=== PATIENT | male | born 1960 | race Caucasian/White ===

== ENCOUNTER 2016-10-24 17:47 | Inpatient (IN) | payer OTHER, MEDICAID ==
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
--- NOTE | 2016-10-24 18:22 | DX ---
Shoulder Minimum 2 Views Right History: Trauma. Pain. Comparison exam: None available. Findings: Obliquely oriented angulated displaced fracture involves the proximal right humeral diaphys is. The humeral head appears normally located. No additional fracture identified. Impression: Obliquely oriented displaced and angulated proximal right humeral diaphyseal fracture.
[2016-10-24 19:01] LABS: % IMMATURE GRANULYOCYTES 0.3 % (0.0-1.1); ABSOLUTE IMMATURE GRANULOCYTES 0.02 10^3/uL (0.00-0.10); ADD DIFF? NO; ADD MORPH? NO; ADD SCAN? NO; ATYPICAL LYMPHOCYTE FLAG 10 (0-99); FRAGMENT RBC FLAG 0 (0-99); HEMATOCRIT 39.4 % (40.0-51.0); HEMOGLOBIN 13.5 g/dL (13.7-17.5); LEFT SHIFT FLG 0 (0-99); LIPEMIA HEMOLYSIS FLAG 90 (0-99); MEAN CELL HEMOGLOBIN 31.8 pg (27.9-34.1); MEAN CELL HEMOGLOBIN CONCENTR. 34.3 g/dL (32.4-36.7); MEAN CELL VOLUME 92.7 fL (81.5-99.8); MEAN PLATELET VOLUME 9.6 fL (8.7-11.7); PLATELET CLUMPS FLAG 10 (0-99); PLATELET COUNT 209 10^3/uL (150-400); RED BLOOD CELL COUNT 4.25 10^6/uL (4.40-6.38); RED CELL DISTRIBUTION WIDTH 12.9 % (11.5-15.2)
[2016-10-24 19:29] LABS: ANION GAP 8 mEq/L (8-16); CALCIUM 8.5 mg/dL (8.5-10.4); CARBON DIOXIDE 26 mEq/l (22-31); CHLORIDE 103 mEq/L (97-110); CREATININE 0.7 mg/dL (0.7-1.3); GLOMERULAR FILTRATION RATE > 60; GLUCOSE 77 mg/dL (70-100); POTASSIUM 4.3 mEq/L (3.5-5.2); SODIUM 137 mEq/L (134-144)
[2016-10-24] MEDS ORDERED: ONDANSETRON 4 MG/2 ML VIAL IVP PRN (19:49)
[2016-10-24] MEDS ORDERED: ONDANSETRON DISINTEGRATING 4 MG TAB PO PRN (19:49)
[2016-10-24] MEDS ORDERED: LORazepam 1 MG TAB PO PRN (19:52)
[2016-10-24] MEDS ORDERED: LORazepam 2 MG/ML INJ IVP PRN (19:52)
[2016-10-24] MEDS ORDERED: THIAMINE HCL 500 MG in NS 100 ML IV ONE (19:52)
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
[2016-10-24] MEDS: oxyCODONE IR 5 MG TAB PO PRN (21:10)
[2016-10-24] MEDS: carBAMazepine ER 400 MG TAB PO SCH (21:10)
[2016-10-24] MEDS ORDERED: NS 1,000 ML IV SCH (22:15)
[2016-10-24] MEDS: PHENobarbital 30 MG TAB PO SCH (23:10)
[2016-10-25] MEDS: oxyCODONE IR 5 MG TAB PO PRN ×3 (04:37→16:22)
[2016-10-25 05:50] LABS: % IMMATURE GRANULYOCYTES 0.3 % (0.0-1.1); ABSOLUTE IMMATURE GRANULOCYTES 0.02 10^3/uL (0.00-0.10); ADD DIFF? NO; ADD MORPH? NO; ADD SCAN? NO; ATYPICAL LYMPHOCYTE FLAG 10 (0-99); FRAGMENT RBC FLAG 0 (0-99); HEMATOCRIT 37.8 % (40.0-51.0); HEMOGLOBIN 12.7 g/dL (13.7-17.5); LEFT SHIFT FLG 0 (0-99); LIPEMIA HEMOLYSIS FLAG 80 (0-99); MEAN CELL HEMOGLOBIN 31.1 pg (27.9-34.1); MEAN CELL HEMOGLOBIN CONCENTR. 33.6 g/dL (32.4-36.7); MEAN CELL VOLUME 92.6 fL (81.5-99.8); MEAN PLATELET VOLUME 9.7 fL (8.7-11.7); PLATELET CLUMPS FLAG 10 (0-99); PLATELET COUNT 178 10^3/uL (150-400); RED BLOOD CELL COUNT 4.08 10^6/uL (4.40-6.38)
[2016-10-25] MEDS: carBAMazepine ER 400 MG TAB PO SCH ×4 (05:53→21:16)
[2016-10-25 06:29] LABS: ANION GAP 6 mEq/L (8-16); CALCIUM 8.3 mg/dL (8.5-10.4); CARBON DIOXIDE 29 mEq/l (22-31); CHLORIDE 108 mEq/L (97-110); CREATININE 0.7 mg/dL (0.7-1.3); GLOMERULAR FILTRATION RATE > 60; GLUCOSE 80 mg/dL (70-100); MAGNESIUM 1.7 mg/dL (1.6-2.3); SODIUM 143 mEq/L (134-144)
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
[2016-10-25] MEDS: THIAMINE HCL 500 MG in NS 100 ML IV SCH (08:51)
[2016-10-25] MEDS: CITALOPRAM 20 MG TAB PO SCH (08:52)
[2016-10-25] MEDS: ETODOLAC 200 MG PO SCH (08:54)
[2016-10-25] MEDS ORDERED: CITALOPRAM 20 MG TAB PO SCH (09:00)
[2016-10-25] MEDS: PHENobarbital 30 MG TAB PO SCH ×3 (09:07→21:16)
--- NOTE | 2016-10-25 09:28 | WOCRNPDOC ---
WOCRN Advanced Assessment Note - Skin Integrity Problem, Advanced Assess Left Ischial Tuberosity Wound Bed Constitution: Healed Pressure Injury Present on Admit: Yes Skin Integrity Problem Comment: Healed full thickness wound. Likely was a pressure injury due to location, but has a strange linear presentation, like a healed laceration. Pt reports that "its hemorrhoids". Wound care does not need to follow. Please reconsult prn.
[2016-10-25] MEDS: ACETAMINOPHEN 325 MG TAB PO PRN ×2 (09:56→16:22)
--- NOTE | 2016-10-25 15:28 | HOSPPROG ---
Hospitalist Progress Note Assessment/Plan: 55-year-old male admitted to the emergency room secondary to fall from his wheelchair. This is my 1st encounter with the patient, chart reviewed. Patient discussed with case management. # humeral fracture Appreciate consult from Dr. Nettles No surgical intervention Patient requires senior care facilities he is wheelchair-bound and can no longer transfer given his humeral fracture # history of seizure disorder No seizure activity at this time Continue medications # wheelchair-bound Will need therapy at senior care facility # history of alcohol abuse No signs of withdrawal at this time # disposition Reviewed with case management Will require senior care facility rehabilitation Continue PT OT eval Subjective: Up in the chair wants to get back to bed. No pain currently. No specific complaints. Objective: Vital Signs Temp Pulse Resp BP Pulse Ox 36.6 C 64 16 97/62 L 90 L 10/25/16 07:55 10/25/16 12:00 10/25/16 12:00 10/25/16 12:00 10/25/16 12:00 Laboratory Results 10/25/16 05:20 10/25/16 05:20 10/24/16 10/25/16 10/26/16 05:59 05:59 05:59 Intake Total 900 Output Total 675 600 Balance 225 -600 - Physical Exam Constitutional: appears nourished, uncomfortable, unkempt Eyes: PERRL, anicteric sclera, EOMI Ears, Nose, Mouth, Throat: moist mucous membranes, hearing normal, ears appear normal Cardiovascular: regular rate and rhythym, No JVD, No edema Respiratory: no respiratory distress, no rales or rhonchi, reduced air movement Gastrointestinal: No tenderness, No ascites, No guarding Skin: warm, normal color, No erythema Musculoskeletal: pain with ROM, muscular tenderness, abnormal gait, generalized weakness Psychiatric: not anxious, not encephalopathic, poor insight, poor judgement ICD10 Worksheet Patient Problems: Problems Problem Status Diagnosed Closed right humeral fracture Acute
[2016-10-26] MEDS: carBAMazepine ER 400 MG TAB PO SCH ×4 (05:13→20:59)
[2016-10-26 05:34] LABS: MAGNESIUM 1.8 mg/dL (1.6-2.3)
[2016-10-26] MEDS ORDERED: MAGNESIUM HYDROXIDE 30 ML UDCUP PO PRN (08:28)
[2016-10-26] MEDS ORDERED: BISACODYL 10 MG SUPP PR PRN (08:28)
[2016-10-26] MEDS ORDERED: LACTULOSE 20 GM/30 ML UDCUP PO PRN (08:28)
[2016-10-26] MEDS: oxyCODONE IR 5 MG TAB PO PRN ×3 (09:31→22:32)
[2016-10-26] MEDS: ACETAMINOPHEN 325 MG TAB PO PRN (09:32)
[2016-10-26] MEDS: CITALOPRAM 20 MG TAB PO SCH (09:32)
[2016-10-26] MEDS: PHENobarbital 30 MG TAB PO SCH ×3 (09:32→21:00)
[2016-10-26] MEDS: SENNOSIDES/DOCUSATE SODIUM TAB PO SCH ×2 (09:34→21:00)
[2016-10-26] MEDS: POLYETHYLENE GLYCOL 3350 17 GM PKT PO SCH (09:34)
[2016-10-26] MEDS: THIAMINE HCL 500 MG in NS 100 ML IV SCH (09:45)
[2016-10-26] MEDS: ETODOLAC 200 MG PO SCH (09:45)
--- NOTE | 2016-10-26 14:08 | HOSPPROG ---
Hospitalist Progress Note Assessment/Plan: 55-year-old male admitted to the emergency room secondary to fall from his wheelchair. This is my 1st encounter with the patient, chart reviewed. Patient discussed with case management. # humeral fracture Appreciate consult from Dr. Nettles No surgical intervention Patient requires [facility] facilities he is wheelchair-bound and can no longer transfer given his humeral fracture # history of seizure disorder No seizure activity at this time Continue medications # wheelchair-bound Will need therapy at [facility] facility # history of alcohol abuse No signs of withdrawal at this time ordered beer with dinner thiamine, alcohol withdrawal protocol # disposition pending/ needs SNF Subjective: Dale has no complaints/ says his right shoulder area is tender. Objective: Vital Signs Temp Pulse Resp BP Pulse Ox 36.9 C 76 18 110/71 91 L 10/26/16 07:45 10/26/16 07:45 10/26/16 07:45 10/26/16 07:45 10/26/16 07:45 Laboratory Results 10/25/16 05:20 10/25/16 05:20 10/25/16 10/26/16 10/27/16 05:59 05:59 05:59 Intake Total 900 650 Output Total 675 1000 100 Balance 225 -350 -100 - Physical Exam Constitutional: chronically ill appearing, uncomfortable, unkempt Eyes: PERRL, scleral injection Ears, Nose, Mouth, Throat: hearing normal Cardiovascular: regular rate and rhythym Respiratory: no respiratory distress Gastrointestinal: normoactive bowel sounds Skin: warm Musculoskeletal: No full muscle strength Neurologic: AAOx3 Psychiatric: interacting appropriately, flat affect ICD10 Worksheet Patient Problems: Problems Problem Status Diagnosed Closed right humeral fracture Acute
[2016-10-26] MEDS ORDERED: BEER 1 EACH EA PO SCH (18:00)
[2016-10-26 23:38] VITALS: RESP 14
[2016-10-27] MEDS: oxyCODONE IR 5 MG TAB PO PRN ×3 (01:21→13:03)
[2016-10-27] MEDS: carBAMazepine ER 400 MG TAB PO SCH ×2 (05:27→13:04)
[2016-10-27 06:01] LABS: MAGNESIUM 1.9 mg/dL (1.6-2.3)
[2016-10-27 07:50] VITALS: BP 93/63; PULSE 72; TEMP 99; O2SAT 94
[2016-10-27] MEDS ORDERED: THIAMINE HCL 100 MG TAB PO SCH (09:00)
[2016-10-27] MEDS: ACETAMINOPHEN 325 MG TAB PO PRN ×2 (09:34→13:03)
[2016-10-27] MEDS: PHENobarbital 30 MG TAB PO SCH (09:35)
[2016-10-27] MEDS: CITALOPRAM 20 MG TAB PO SCH (09:35)
[2016-10-27] MEDS: ETODOLAC 200 MG PO SCH (09:39)
[2016-10-27] MEDS: POLYETHYLENE GLYCOL 3350 17 GM PKT PO SCH (09:40)
[2016-10-27] MEDS: SENNOSIDES/DOCUSATE SODIUM TAB PO SCH (09:40)
--- NOTE | 2016-10-27 10:47 | HOSPPROG ---
Hospitalist Progress Note Assessment/Plan: 55-year-old male admitted to the emergency room secondary to fall from his wheelchair. # r humeral fracture Appreciate consult from Dr. Nettles No surgical intervention f/u in two weeks # history of seizure disorder No seizure activity at this time Continue medications # wheelchair-bound Will need therapy at prison facility # history of alcohol abuse No signs of withdrawal at this time ordered beer with dinner thiamine, alcohol withdrawal protocol # disposition [employer] today Subjective: Dale is not c/o pain. says he feels "so-so" Objective: Vital Signs Temp Pulse Resp BP Pulse Ox 37.2 C 72 14 93/63 L 94 10/27/16 07:49 10/27/16 07:49 10/27/16 07:49 10/27/16 07:49 10/27/16 07:49 Laboratory Results 10/25/16 05:20 10/25/16 05:20 10/26/16 10/27/16 10/28/16 05:59 05:59 05:59 Intake Total 650 750 Output Total 1000 600 150 Balance -350 150 -150 - Physical Exam Constitutional: no apparent distress, chronically ill appearing, unkempt Eyes: PERRL Ears, Nose, Mouth, Throat: hearing normal Cardiovascular: regular rate and rhythym Respiratory: no respiratory distress Gastrointestinal: normoactive bowel sounds Skin: warm, normal color Musculoskeletal: No no muscle tenderness (right shoulder/arm area) Neurologic: AAOx3 Psychiatric: interacting appropriately, flat affect ICD10 Worksheet Patient Problems: Problems Problem Status Diagnosed Closed right humeral fracture Acute
--- NOTE | 2016-10-27 10:51 | PDIAF ---
- Diagnosis Diagnosis: right humerus fx, wheelchair bound, alcohol use Code Status: Full Code - Medication Management Discharge Medications: Medications to Continue on Transfer Carbamazepine [Carbamazepine ER] 400 mg PO QID 10/24/16 [Last Taken 10/24/16] Citalopram Hydrobromide [Citalopram HBr] 10 mg PO DAILY 10/24/16 [Last Taken 05/02] Citalopram Hydrobromide [Citalopram HBr] 20 mg PO DAILY 10/24/16 [Last Taken 05/02] Etodolac [Etodolac] 200 mg PO DAILY 10/24/16 [Last Taken Unknown] Phenobarbital [PHENOBARBITAL] 1 tab PO TID 10/24/16 [Last Taken 10/24/16] Discharge Medications: Refer to the Discharge Home Medication list for PRN reason. - Orders Services needed: Physical Therapy, Occupational Therapy Diet Recommendation: no restrictions on diet Diet Texture: Regular Texture Diet Activity/Weight Bearing Restrictions: sling to right upper ext. non weight bearing. see Dr Nettles in 2 weeks/ will need repeat imaging at that time - Follow Up Care Current Providers and Referrals: [place] STATE,. [Primary Care Provider] - As per Instructions Josue Nettles MD [Medical Doctor] -
--- NOTE | 2016-10-27 11:29 | PDIAF ---
- Diagnosis Diagnosis: r humerus fx/ wheelchair bound, alcohol use Code Status: Full Code - Medication Management Discharge Medications: Medications to Continue on Transfer Carbamazepine [Carbamazepine ER] 400 mg PO QID 10/24/16 [Last Taken 10/24/16] Citalopram Hydrobromide [Citalopram HBr] 10 mg PO DAILY 10/24/16 [Last Taken 05/02] Citalopram Hydrobromide [Citalopram HBr] 20 mg PO DAILY 10/24/16 [Last Taken 05/02] Etodolac 200 mg PO DAILY 10/24/16 [Last Taken Unknown] Phenobarbital [PHENOBARBITAL] 1 tab PO TID 10/24/16 [Last Taken 10/24/16] Acetaminophen [Tylenol 325mg (*)] 650 mg PO Q4HRS PRN #0 tab 10/27/16 [Last Taken Unknown] Polyethylene Glycol 3350 [Miralax 17 gm (*)] 17 gm PO DAILY #0 pkt 10/27/16 [ Last Taken Unknown] Sennosides/Docusate Sodium [Senokot-S] 1 - 2 tab PO BID #0 tab 10/27/16 [Last Taken Unknown] Thiamine HCl [Vitamin B-1] 100 mg PO DAILY #0 tab 10/27/16 [Last Taken Unknown] oxyCODONE IR [Oxycodone Ir (*)] 5 - 10 mg PO Q3HRS PRN #0 tab 10/27/16 [Last Taken Unknown] Discharge Medications: Refer to the Discharge Home Medication list for PRN reason. - Orders Services needed: Physical Therapy, Occupational Therapy Diet Recommendation: no restrictions on diet Diet Texture: Regular Texture Diet Activity/Weight Bearing Restrictions: sling to right upper ext. non weight bearing. see Dr Nettles in 2 weeks/ will need repeat imaging at that time Equipment: wheelchair and sling to right arm Additional: please give a beer with dinner - Follow Up Care Current Providers and Referrals: [place],. [Primary Care Provider] - As per Instructions Josue Nettles MD [Medical Doctor] -
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
== END 2016-10-27 14:05 | disposition home health service (06) | DRG 563 ==
LOC: EDUNIT# → F3N 20:06
PROVIDERS: ADMIT Student in an Organized Health Care Education/Training Program; ATTEND Student in an Organized Health Care Education/Training Program
DX: S49.001A Unspecified physeal fracture of upper end of humerus, right arm, initial encounter for closed fracture (principal); F10.10 Alcohol abuse, uncomplicated; G40.909 Epilepsy, unspecified, not intractable, without status epilepticus; Y93.89 Activity, other specified; W05.0XXA Fall from non-moving wheelchair, initial encounter; Z99.3 Dependence on wheelchair; Z72.0 Tobacco use
CPT/HCPCS: 97110-GO; 97161-GP; 97165-GO; 97530-GO; G8981-GP-CJ; G8982-GP-CI; G8987-GO-CK; G8988-GO-CI; J3411

== ENCOUNTER → 2016-11-07 | Outpatient (CLI) | payer OTHER, MEDICAID | LOC: BMCIMAGING 14:49 | PROVIDERS: ATTEND Orthopaedic Surgery | DX: S42.291D Other displaced fracture of upper end of right humerus, subsequent encounter for fracture with routine healing (principal) ==

== ENCOUNTER → 2016-12-11 | Outpatient (CLI) | payer OTHER, MEDICAID | LOC: BMCIMAGING 09:32 | PROVIDERS: ATTEND Physician Assistant | DX: S42.291A Other displaced fracture of upper end of right humerus, initial encounter for closed fracture (principal) ==

== ENCOUNTER 2017-02-12 18:35 | Emergency (ER) | payer OTHER, MEDICAID ==
--- NOTE | 2017-02-12 18:47 | EDPHY ---
H & P Time Seen by Provider: 02/12/17 18:44 - Medical/Surgical History Hx Asthma: No Hx Chronic Respiratory Disease: No Hx Diabetes: No Hx Cardiac Disease: No Hx Renal Disease: No Hx Cirrhosis: No Hx Alcoholism: No Hx HIV/AIDS: No Hx Splenectomy or Spleen Trauma: No Other PMH: epilepsy - Social History Smoking Status: Current every day smoker Constitutional: Initial Vital Signs Temperature (C) 36.9 C 02/12/17 18:47 Heart Rate 83 02/12/17 18:47 Respiratory Rate 16 02/12/17 18:47 Blood Pressure 104/71 02/12/17 18:47 O2 Sat (%) 92 02/12/17 18:47 O2 Delivery Mode Room Air Allergies/Adverse Reactions: No Known Allergies Allergy (Verified 10/24/16 17:57) Home Medications: Medication Instructions Recorded Carbamazepine [Carbamazepine ER] 400 mg PO QID 10/24/16 Citalopram Hydrobromide 10 mg PO DAILY 10/24/16 [Citalopram HBr] Citalopram Hydrobromide 20 mg PO DAILY 10/24/16 [Citalopram HBr] Etodolac 200 mg PO DAILY 10/24/16 PHENobarbital [PHENOBARBITAL] 1 tab PO TID 10/24/16 Acetaminophen [Tylenol 325mg (*)] 650 mg PO Q4HRS PRN #0 tab 10/27/16 Polyethylene Glycol 3350 [Miralax 17 gm PO DAILY #0 pkt 10/27/16 17 gm (*)] Sennosides/Docusate Sodium 1 - 2 tab PO BID #0 tab 10/27/16 [Senokot-S] Thiamine HCl [Vitamin B-1] 100 mg PO DAILY #0 tab 10/27/16 oxyCODONE IR [Oxycodone Ir (*)] 5 - 10 mg PO Q3HRS PRN #0 tab 10/27/16 Medical Decision Making ED Course/Re-evaluation: CHIEF COMPLAINT: Alcohol intoxication. HISTORY OF PRESENT ILLNESS: The patient is a 56-year-old male presenting with alcohol intoxication. The patient was discharged from [facility] 1 week ago. He has continuously been pushing his HELP button at home. Patient told nursing staff he has been drinking "too much alcohol". Patient denies any injuries denies loss of consciousness denies any recent trauma. Patient denies co- ingestion. Patient denies suicidal or homicidal behavio History is difficulty to obtain because patient is intoxicated. REVIEW OF SYSTEMS: A 10 point review of systems was performed and is negative with the exception of the elements mentioned in the history of present illness. PHYSICAL EXAM: PHYSICAL EXAM: General Appearance: Alert, well hydrated, appropriate, and non-toxic appearing. Head: Atraumatic without scalp tenderness or obvious injury Eyes: Pupils equal, round, reactive to light and accommodation, EOMI, no trauma , no injection. Ears: Clear bilaterally, no perforation, normal landmarks Nose: Atraumatic, no rhinorrhea, clear. Throat: There is no erythema or exudates, no lesions, normal tonsils, mucus membranes moist. Neck: Supple, 2+ carotid upstroke, nontender, no lymphadenopathy. Respiratory: No retractions, no distress, no wheezes, and no accessory muscle use. Lungs are clear to auscultation bilaterally. Cardiovascular: Regular rate and rhythm, no murmurs, rubs, or gallops. Bilateral carotid, radial, dorsalis pedis, and posterior tibial pulses intact. Good capillary refill all extremities. Gastrointestinal: Abdomen is soft, nontender, non-distended, no masses, no rebound, no guarding, no peritoneal signs. Musculoskeletal: Normal active ROM of all extremities, atraumatic. Neurological: Alert, appropriate, and interactive. The patient has normal DTRs and non-focal cranial nerves, motor, sensory, and cerebellar exam. Skin: No rashes, good turgor, no nodules on palpation. PAST MEDICAL HISTORY: Alcoholism, TBI, Epilepsy PAST SURGICAL HISTORY: Denies. SOCIAL HISTORY: Heavy alcohol use. DIFFERENTIAL DIAGNOSIS: MEDICAL DECISION MAKING: I serially examined this patient since the patient's arrival here in the emergency department. The patient continues to become more and more sober with each examination. I serially questioned the patient and the patient's story given initially has not changed. The patient still denies any trauma, any head injury, and any illicit drug use. At this point, the patient is walking the department freely and is clinically sober. We're discharging the patient to the [facility] in stable condition. Alcohol level is 90. - Data Points Laboratory Results: Laboratory Results 02/12/17 18:44 02/12/17 18:44 02/12/17 02/12/17 18:44 18:44 WBC 5.81 10^3/uL 10^3/uL (3.80-9.50) RBC 4.66 10^6/uL 10^6/uL (4.40-6.38) Hgb 14.5 g/dL g/dL (13.7-17.5) Hct 42.7 % % (40.0-51.0) MCV 91.6 fL fL (81.5-99.8) MCH 31.1 pg pg (27.9-34.1) MCHC 34.0 g/dL g/dL (32.4-36.7) RDW 12.8 % % (11.5-15.2) Plt Count 154 10^3/uL 10^3/uL (150-400) MPV 10.8 fL fL (8.7-11.7) Neut % (Auto) 63.7 % % (39.3-74.2) Lymph % (Auto) 28.1 % % (15.0-45.0) [place] % (Auto) 7.2 % % (4.5-13.0) Eos % (Auto) 0.0 % L % (0.6-7.6) Baso % (Auto) 0.7 % % (0.3-1.7) Nucleat RBC Rel Count 0.0 % % (0.0-0.2) Absolute Neuts (auto) 3.70 10^3/uL 10^3/uL (1.70-6.50) Absolute Lymphs (auto) 1.63 10^3/uL 10^3/uL (1.00-3.00) Absolute Monos (auto) 0.42 10^3/uL 10^3/uL (0.30-0.80) Absolute Eos (auto) 0.00 10^3/uL L 10^3/uL (0.03-0.40) Absolute Basos (auto) 0.04 10^3/uL 10^3/uL (0.02-0.10) Absolute Nucleated RBC 0.00 10^3/uL 10^3/uL (0-0.01) Immature Gran % 0.3 % % (0.0-1.1) Immature Gran # 0.02 10^3/uL 10^3/uL (0.00-0.10) Sodium 138 mEq/L mEq/L (134-144) Potassium 3.5 mEq/L mEq/L (3.5-5.2) Chloride 100 mEq/L mEq/L (97-110) Carbon Dioxide 23 mEq/l mEq/l (22-31) Anion Gap 15 mEq/L mEq/L (8-16) BUN 9 mg/dL mg/dL (7-23) Creatinine 0.7 mg/dL mg/dL (0.7-1.3) Estimated GFR > 60 Glucose 83 mg/dL mg/dL (70-100) Calcium 9.1 mg/dL mg/dL (8.5-10.4) Ethyl Alcohol 90 mg/dL H mg/dL (0-10) Departure - Departure Disposition: Home, Routine, Self-Care Clinical Impression: Alcohol intoxication Qualifiers: Complication of substance-induced condition: uncomplicated Qualified Code(s): F10.120 - Alcohol abuse with intoxication, uncomplicated Condition: Good Instructions: Alcohol Intoxication (ED) Additional Instructions: [facility]. Return to the Emergency Department with new or worsening symptoms. Referrals: [facility] [Outside] - As per Instructions Report Scribed for: Christo Fairchild Report Scribed by: Tiarra Duong Date of Report: 02/12/17 Time of Report: 19:08
[2017-02-12 19:09] LABS: % IMMATURE GRANULYOCYTES 0.3 % (0.0-1.1); ABSOLUTE IMMATURE GRANULOCYTES 0.02 10^3/uL (0.00-0.10); ADD DIFF? NO; ADD MORPH? NO; ADD SCAN? NO; ATYPICAL LYMPHOCYTE FLAG 10 (0-99); FRAGMENT RBC FLAG 0 (0-99); HEMATOCRIT 42.7 % (40.0-51.0); HEMOGLOBIN 14.5 g/dL (13.7-17.5); LEFT SHIFT FLG 0 (0-99); LIPEMIA HEMOLYSIS FLAG 90 (0-99); MEAN CELL HEMOGLOBIN 31.1 pg (27.9-34.1); MEAN CELL VOLUME 91.6 fL (81.5-99.8); MEAN PLATELET VOLUME 10.8 fL (8.7-11.7); PLATELET CLUMPS FLAG 0 (0-99); PLATELET COUNT 154 10^3/uL (150-400); RED BLOOD CELL COUNT 4.66 10^6/uL (4.40-6.38); RED CELL DISTRIBUTION WIDTH 12.8 % (11.5-15.2)
[2017-02-12 19:19] LABS: ANION GAP 15 mEq/L (8-16); CALCIUM 9.1 mg/dL (8.5-10.4); CARBON DIOXIDE 23 mEq/l (22-31); CHLORIDE 100 mEq/L (97-110); CREATININE 0.7 mg/dL (0.7-1.3); ETHANOL SERUM 90 mg/dL (0-10); GLOMERULAR FILTRATION RATE > 60; GLUCOSE 83 mg/dL (70-100); POTASSIUM 3.5 mEq/L (3.5-5.2); SODIUM 138 mEq/L (134-144)
[2017-02-12] MEDS ORDERED: CHLORDIAZEPOXIDE 25MG PREPK#6 BTL TAKEHOME ONE (19:40)
[2017-02-12 23:25] VITALS: PULSE 71
[2017-02-12 23:44] VITALS: BP 110/72; RESP 16; TEMP 98.2; O2SAT 94
== END 2017-02-12 23:44 | disposition home or self-care (01) ==
LOC: EDUNIT#
DX: F10.120 Alcohol abuse with intoxication, uncomplicated (principal); F17.200 Nicotine dependence, unspecified, uncomplicated
CPT/HCPCS: G0480

== ENCOUNTER 2017-02-24 06:06 | Emergency (ER) | payer OTHER, MEDICAID ==
[2017-02-24 06:17] VITALS: RESP 16; TEMP 98.1
--- NOTE | 2017-02-24 06:19 | EDPHY ---
H & P Stated Complaint: R shoulder pain - Personal History Current Tetanus/Diphtheria Vaccine: Unsure Current Tetanus Diphtheria and Acellular Pertussis (TDAP): Unsure - Medical/Surgical History Hx Asthma: No Hx Chronic Respiratory Disease: No Hx Diabetes: No Hx Cardiac Disease: No Hx Renal Disease: No Hx Cirrhosis: No Hx Alcoholism: No Hx HIV/AIDS: No Hx Splenectomy or Spleen Trauma: No Other PMH: epilepsy - Social History Smoking Status: Current every day smoker Time Seen by Provider: 02/24/17 06:08 HPI/ROS: Chief Complaint: Right shoulder pain HPI: 56-year-old male slipped and fell while transferring from his bed to his wheelchair this morning, landing on his right shoulder. Patient laid about an hour before his neighbors heard him calling. Patient denies hitting his head. No neck pain. No chest pain shortness of breath. Complaining of pain in his right shoulder. He has decreased range of motion secondary to pain. No prior injuries. No recent illness. No fevers or chills. ROS: 10 point Review of Systems is negative except as noted in the HPI. PMH: Traumatic brain injury, chronic alcoholism, epilepsy Social History: Heavy alcohol use history Family History: non-contributory Physical Exam: Gen: Awake, Alert, No Distress HEENT: Nose: no rhinorrhea Eyes: PERRLA, EOMI Mouth: Moist mucosa Neck: Supple, no JVD Chest: nontender, lungs clear to auscultation Heart: S1, S2 normal, no murmur Abd: Soft, non-tender, no guarding Back: no CVA tenderness, no midline tenderness Ext: no edema, anterior lateral right shoulder tenderness. No clavicular tenderness. Decreased range of motion secondary to pain. Skin: no rash Neuro: CN II-XII intact, Sensation grossly intact, Strength 5/5 in bilateral upper and lower extremities (Ricki Freedman) Constitutional: Initial Vital Signs Temperature (C) 36.7 C 02/24/17 06:15 Heart Rate 77 02/24/17 06:15 Respiratory Rate 16 02/24/17 06:15 Blood Pressure 122/80 H 02/24/17 06:15 O2 Sat (%) 92 02/24/17 06:15 O2 Delivery Mode Room Air O2 (L/minute) 2 Allergies/Adverse Reactions: No Known Allergies Allergy (Verified 02/24/17 06:14) Home Medications: Medication Instructions Recorded Carbamazepine [Carbamazepine ER] 400 mg PO QID 10/24/16 Citalopram Hydrobromide 10 mg PO DAILY 10/24/16 [Citalopram HBr] Citalopram Hydrobromide 20 mg PO DAILY 10/24/16 [Citalopram HBr] Etodolac 200 mg PO DAILY 10/24/16 PHENobarbital [PHENOBARBITAL] 1 tab PO TID 10/24/16 Acetaminophen [Tylenol 325mg (*)] 650 mg PO Q4HRS PRN #0 tab 10/27/16 Polyethylene Glycol 3350 [Miralax 17 gm PO DAILY #0 pkt 10/27/16 17 gm (*)] Sennosides/Docusate Sodium 1 - 2 tab PO BID #0 tab 10/27/16 [Senokot-S] Thiamine HCl [Vitamin B-1] 100 mg PO DAILY #0 tab 10/27/16 oxyCODONE IR [Oxycodone Ir (*)] 5 - 10 mg PO Q3HRS PRN #0 tab 10/27/16 Medical Decision Making ED Course/Re-evaluation: Pt s/o to Dr Fairchild pending XR results. (Ricki Freedman) This patient was signed out to me at change of shift. Reviewed his right shoulder x-ray. He has had a fracture since November 07. He has poor union or nonunion of the fracture. It looks to be in similar alignment. He is once again intoxicated. When he is clinically sober will discharge him. He has appropriate orthopedic follow-up already (Christo Fairchild) Departure - Departure Disposition: Home, Routine, Self-Care Clinical Impression: Alcohol abuse Closed right humeral fracture Qualifiers: Encounter type: subsequent encounter Humerus Location: surgical neck Fracture morphology: 4-part Fracture healing: with delayed healing Qualified Code(s): S42.241G - 4-part fracture of surgical neck of right humerus, subsequent encounter for fracture with delayed healing Condition: Good Instructions: Abuse of Alcohol (ED), Arm Fracture in Adults (ED) Referrals: Brenden Escobedo MD [Primary Care Provider] - As per Instructions
[2017-02-24 08:08] VITALS: BP 100/73; PULSE 67; O2SAT 96
== END 2017-02-24 08:49 | disposition home or self-care (01) ==
LOC: EDBD → EDUNIT#
DX: S42.241 4-part fracture of surgical neck of right humerus (principal); F17.200 Nicotine dependence, unspecified, uncomplicated; F10.10 Alcohol abuse, uncomplicated; W01.0XXA Fall on same level from slipping, tripping and stumbling without subsequent striking against object, initial encounter; Y93.89 Activity, other specified

== ENCOUNTER → 2017-06-05 | Outpatient (CLI) | payer OTHER, MEDICAID | LOC: BMCIMAGING 14:22 | PROVIDERS: ATTEND Orthopaedic Surgery | DX: S42.291D Other displaced fracture of upper end of right humerus, subsequent encounter for fracture with routine healing (principal) ==

== ENCOUNTER 2017-10-16 20:04 | Emergency (ER) | payer OTHER, MEDICAID ==
[2017-10-16] MEDS ORDERED: NS 1,000 ML IV ONE (20:07)
[2017-10-16 20:12] VITALS: RESP 16
[2017-10-16] MEDS ORDERED: ONDANSETRON 4 MG/2 ML VIAL ONE (20:12)
[2017-10-16 20:41] LABS: PLATELET COUNT 128 10^3/uL (150-400)
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
[2017-10-16 20:49] LABS: PROTIME(PATIENT) 13.4 SEC (12.0-15.0)
[2017-10-16 23:19] VITALS: PULSE 91; O2SAT 96
[2017-10-17 00:35] VITALS: BP 110/74; TEMP 98.6
== END 2017-10-17 00:40 | disposition home or self-care (01) ==
LOC: EDUNIT#
DX: R11.2 Nausea with vomiting, unspecified (principal); E86.9 Volume depletion, unspecified
CPT/HCPCS: 71046; 96360; 99284; J2405

== ENCOUNTER → 2017-11-25 | Outpatient (CLI) | payer OTHER, MEDICAID | LOC: FIMAGING 07:02 | PROVIDERS: ATTEND Physician Assistant | DX: R11.2 Nausea with vomiting, unspecified (principal); K87 Disorders of gallbladder, biliary tract and pancreas in diseases classified elsewhere ==